=== PATIENT | male | born 1965 | race Caucasian/White ===

== ENCOUNTER 2021-11-02 16:25 | Inpatient (IN) | payer OTHER ==
[~2021-11-02] VITALS: Ht 168 cm; Wt 76.0 kg
[2021-11-02] MEDS ORDERED: NITROGLYCERIN 0.4 MG SL TABS BTL 25'S SL ONE (16:35)
[2021-11-02] MEDS ORDERED: ASPIRIN 81 MG CHEW (CHILDREN'S ASA) ONE (16:35)
--- NOTE | 2021-11-02 16:45 | ED Chest Pain ---
General Chief Complaint: Chest Pain Stated Complaint: CHEST PAIN Source: patient Exam Limitations: no limitations History of Present Illness Date Seen by Provider: Nov 02, 2021 Time Seen by Provider: 16:33 Initial Comments Patient is an 56-year-old male who presents to the emergency department today with a chief complaint of substernal chest pain onset approximately 30 minutes prior to arrival. Patient states he was walking into his barn at the onset of symptoms. He states it traveled up into his anterior neck. He feels a little nauseous, has not vomited. He feels a little short of breath. He tells me he has No prior history of coronary artery disease but he has had a mechanical aortic valve replacement and is anticoagulated on Coumadin. He denies recent illnesses such as fevers, chills, productive cough. On patient arrival into the room and EKG immediately after bed placement it is noted that the patient is having an acute myocardial infarction. I immediately sent the EKG to Dr. Hughes and we activated the Generator Assembler. 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 NTG SL PAPER PRODUCTION ENGINEER: No Allergies and Home Medications Allergies Coded Allergies: Txipamr-NQN-[id number] Reductase Inhibitor (Verified Allergy, Unknown, 11/02/21) amoxicillin (Verified Allergy, Unknown, Diarrhea, 11/02/21) clavulanic acid (Verified Allergy, Unknown, Diarrhea, 11/02/21) Patient Home Medication List Home Medication List Reviewed: Yes Aspirin (Aspirin EC) 81 Mg Tablet., 81 MG PO DAILY, (Reported) Entered as Reported by: JONI SYED on 11/03/21 1031 Last Action: Reviewed Cholecalciferol (Vitamin D3) (Vitamin D3) 125 Mcg (5000 Unit) Tablet, 125 MCG PO DAILY, (Reported) Entered as Reported by: JONI SYED on 11/03/21 1031 Last Action: Reviewed Insulin Lispro (Humalog) 100 Unit/Ml Vial, 0 SC UD, (Reported) Entered as Reported by: JONI SYED on 11/03/21 1030 Last Action: Reviewed Magnesium Oxide (Magnesium) 400 Mg Magnesium Tablet, 800 MG PO BID, (Reported) Entered as Reported by: JONI SYED on 11/03/21 1033 Last Action: Reviewed Multivitamin (Multi-Vitamin Daily) 1 Each Tablet, 1 EACH PO HS, (Reported) Entered as Reported by: JONI SYED on 11/03/21 103 Last Action: Reviewed Niacinamide (Niacin) 500 Mg Tablet, 500 MG PO HS, (Reported) Entered as Reported by: JONI SYED on 11/03/211031 Last Action: Reviewed Potassium Chloride (Potassium Chloride) 20 Meq Tab.er.prt, 20 MG PO DAILY, (Reported) Entered as Reported by: JONI SYED on 11/03/211029 Last Action: Reviewed Valsartan (Valsartan) 320 Mg Tablet, 320 MG PO DAILY, (Reported) Entered as Reported by: JONI SYED on 11/03/21 103 Last Action: Reviewed Warfarin Sodium (Warfarin Sodium) 2.5 Mg Tablet, 2.5 MG PO HS, (Reported) Entered as Reported by: JONI SYED on 11/03/211029 Last Action: Reviewed Review of Systems Review of Systems Constitutional: see HPI EENTM: No Symptoms Reported Respiratory: SOA With Exertion Cardiovascular: Chest Pain Gastrointestinal: Nausea Genitourinary: No Symptoms Reported Musculoskeletal: no symptoms reported Skin: no symptoms reported Psychiatric/Neurological: No Symptoms Reported All Other Systems Reviewed Negative Unless Noted: Yes Physical Exam Vital Signs Vital Signs - First Documented 11/02/21 11/02/21 16:26 16:50 Temp 36.4 Pulse 116 Resp 20 B/P (MAP) 171/80 (110) Pulse Ox 100 O2 Delivery Nasal Cannula O2 Flow Rate 2.00 Capillary Refill : Height, Weight, BMI Height: '" Weight: lbs. oz. kg; BMI Method: General Appearance: WD/WN, Anxious, Moderate Distress HEENT: PERRL/EOMI Neck: Normal Inspection Respiratory: Chest Non Tender, Lungs Clear, Normal Breath Sounds, No Accessory Muscle Use, No Respiratory Distress Cardiovascular: Regular Rate, Rhythm, Normal Peripheral Pulses, Tachycardia (110) Gastrointestinal: Non Tender, Soft Extremity: Normal Inspection, Normal Range of Motion Neurologic/Psychiatric: Alert, Oriented x3, No Motor/Sensory Deficits, Normal Mood/Affect, air press operator II-XII Norm as Tested Skin: Warm/Dry, Pallor Progress/Results/Core Measures Results/Orders Lab Results Laboratory Tests Test 11/02/21 16:31 11/02/21 16:48 Range/Units White Blood Count 9.6 4.3-11.0 10^3/uL Red Blood Count 5.14 4.30-5.52 10^6/uL Hemoglobin 16.0 13.3-17.7 g/dL Hematocrit 45 40-54 % Mean Corpuscular Volume 87 80-99 fL Mean Corpuscular Hemoglobin 31 25-34 pg Mean Corpuscular Hemoglobin Concent 36 32-36 g/dL Red Cell Distribution Width 13.3 10.0-14.5 % Platelet Count 198 130-400 10^3/uL Mean Platelet Volume 11.0 9.0-12.2 fL Immature Granulocyte % (Auto) 3 % Neutrophils (%) (Auto) 54 42-75 % Lymphocytes (%) (Auto) 32 12-44 % Monocytes (%) (Auto) 10 0-12 % Eosinophils (%) (Auto) 1 0-10 % Basophils (%) (Auto) 0 0-10 % Neutrophils # (Auto) 5.2 1.8-7.8 10^3/uL Lymphocytes # (Auto) 3.1 1.0-4.0 10^3/uL Monocytes # (Auto) 0.9 0.0-1.0 10^3/uL Eosinophils # (Auto) 0.1 0.0-0.3 10^3/uL Basophils # (Auto) 0.0 0.0-0.1 10^3/uL Immature Granulocyte # (Auto) 0.2 H 0.0-0.1 10^3/uL Prothrombin Time 19.9 H 12.2-14.7 SEC INR Comment 1.6 H 0.8-1.4 Activated Partial Thromboplast Time 34 24-35 SEC Sodium Level 139 135-145 MMOL/L Potassium Level 3.6 3.6-5.0 MMOL/L Chloride Level 101 98-107 MMOL/L Carbon Dioxide Level 23 21-32 MMOL/L Anion Gap 15 H 5-14 MMOL/L Blood Urea Nitrogen 27 H 7-18 MG/DL Creatinine 1.35 H 0.60-1.30 MG/DL Estimat Glomerular Filtration Rate 61 BUN/Creatinine Ratio 20 Glucose Level 129 H 70-105 MG/DL Calcium Level 9.4 8.5-10.1 MG/DL Corrected Calcium 9.2 8.5-10.1 MG/DL Magnesium Level 1.5 L 1.6-2.4 MG/DL Total Bilirubin 0.7 0.1-1.0 MG/DL Aspartate Amino Transf (AST/SGOT) 37 H 5-34 U/L Alanine Aminotransferase (ALT/SGPT) 52 0-55 U/L Alkaline Phosphatase 89 40-136 U/L Myoglobin 190.0 H 10.0-92.0 NG/ML Troponin I < 0.028 <0.028 NG/ML Total Protein 7.3 6.4-8.2 GM/DL Albumin 4.3 3.2-4.5 GM/DL Glucometer 162 H 70-110 MG/DL My Orders Orders - AMMON BROWN MD Ekg Tracing (11/02/21 16:29) Cbc With Automated Diff (11/02/21 16:38) Magnesium (11/02/21 16:38) Chest 1 View, Ap/Pa Only (11/02/21 16:38) Ekg Tracing (11/02/21 16:38) Comprehensive Metabolic Panel (11/02/21 16:38) Myoglobin Serum (11/02/21 16:38) Protime With Inr (11/02/21 16:38) Partial Thromboplastin Time (11/02/21 16:38) O2 (11/02/21 16:38) Monitor-Rhythm Ecg Trace Only (11/02/21 16:38) Ed Iv/Invasive Line Start (11/02/21 16:38) Troponin I [place] (11/02/21 16:38) Aspirin Chewable Tablet (Baby Aspirin Ch (11/02/21 16:35) Nitroglycerin 0.4 Mg Btl 25's (Nitrostat (11/02/21 16:35) Vital Signs/I&O 11/02/21 11/02/21 16:26 16:50 Temp 36.4 Pulse 116 Resp 20 B/P (MAP) 171/80 (110) Pulse Ox 100 O2 Delivery Nasal Cannula O2 Flow Rate 2.00 Initial ECG Impression Date: Nov 03, 2021 Initial ECG Impression Time: 16:32 Initial ECG Rate: 102 Initial ECG Rhythm: S.Tach Initial ECG Intervals VA 154 QRS 143 [address] elevation. peaked T waves with widened QRS leads V2-V6; concerning for STEMI Diagnostic Imaging Diagonstic Imaging: Xray Plain Films/CT/US/NM/MRI: chest Comments [facility] [place], [place] NAME: [place] [facility] REC#: [id number] PT STATUS: REG SDC : 1965 PHYSICIAN: AMMON BROWN MD ADMIT DATE: 11/02/21/[facility] Signed Date of Exam:11/02/21 CHEST 1 VIEW, AP/PA ONLY EXAMINATION: Chest 1 view HISTORY: Chest pain COMPARISON: None available. FINDINGS: The lungs are clear without edema or pneumonia. No pleural effusion or pneumothorax. Heart size is normal. Median sternotomy wires are aligned. IMPRESSION: 1. Clear lungs. 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
[2021-11-02 16:48] LABS: BASOPHILS % (AUTO) 0 % (0-10); EOSINOPHILS # (AUTO) 0.1 10^3/uL (0.0-0.3); EOSINOPHILS % (AUTO) 1 % (0-10); HEMATOCRIT 45 % (40-54); LYMPHOCYTES # (AUTO) 3.1 10^3/uL (1.0-4.0); LYMPHOCYTES % (AUTO) 32 % (12-44); MEAN CORPUSCULAR HEMOGLOBIN 31 pg (25-34); MEAN CORPUSCULAR HGB CONC 36 g/dL (32-36); MEAN CORPUSCULAR VOLUME 87 fL (80-99); MONOCYTES # (AUTO) 0.9 10^3/uL (0.0-1.0); MONOCYTES % (AUTO) 10 % (0-12); NEUTROPHILS # (AUTO) 5.2 10^3/uL (1.8-7.8); NEUTROPHILS % (AUTO) 54 % (42-75); PLATELET COUNT 198 10^3/uL (130-400); WHITE BLOOD COUNT 9.6 10^3/uL (4.3-11.0)
[2021-11-02] MEDS ORDERED: morphine INJ 10 MG/ML 1ML (SYR OR VIAL) IVP STA ×2 (16:54→22:29)
--- NOTE | 2021-11-02 16:56 | Diagnostic Imaging Report ---
EXAMINATION: Chest 1 view HISTORY: Chest pain COMPARISON: None available. FINDINGS: The lungs are clear without edema or pneumonia. No pleural effusion or pneumothorax. Heart size is normal. Median sternotomy wires are aligned. IMPRESSION: 1. Clear lungs. Dictated by: Dictated on workstation # [id number]
[2021-11-02 16:57] LABS: ALBUMIN 4.3 GM/DL (3.2-4.5); POTASSIUM 3.6 MMOL/L (3.6-5.0)
[2021-11-02 16:58] LABS: CALCIUM 9.4 MG/DL (8.5-10.1)
[2021-11-02] MEDS ORDERED: MIDAZOLAM 5 MG/5 ML (VERSED) VIAL ONE (16:59)
[2021-11-02] MEDS ORDERED: NS IV 1000 ML 1,000 ML ONE (16:59)
[2021-11-02] MEDS ORDERED: NITRO DRIP 25000 MCG/D5W 250 ML IV ONE ×2 (16:59→19:00)
[2021-11-02] MEDS ORDERED: HEParin (CATH LAB) 1,000 ML IV ONE (16:59)
[2021-11-02] MEDS ORDERED: HEParin 1000 UNIT/ML (10ML VIAL) FOR BOLUS ONE (16:59)
[2021-11-02] MEDS ORDERED: fentaNYL INJ 100 MCG/2 ML AMP ONE (16:59)
[2021-11-02 17:00] LABS: TOTAL PROTEIN 7.3 GM/DL (6.4-8.2)
[2021-11-02] MEDS ORDERED: LIDOCAINE 1% INJ 20 ML VIAL ONE (17:00)
--- NOTE | 2021-11-02 17:01 | Cardiology History & Physical ---
HPI-Cardiology Cardiology Consultation Date of Consultation 11/02/21 Date of Admission Time Seen by Provider: 16:58 Indication: Acute myocardial infarction HPI 56 years old gentleman with history of aortic valve replacement, started to have sudden onset chest pain retrosternal radiating to the neck and jaw. Came into the emergency room and noted to have ST elevation in the anterolateral leads. He still having active pain, some relieved with nitroglycerin but still having persistent pain. No shortness of breath. No palpitation, patient is fairly anxious. PMH-Cardiology Other PMHx Discussed below Social History Patient Social History Marrital Status: Employed/Student: employed Smoking: Never smoker Alcohol Use?: Yes Family Hx Other Noncontributory ROS-Cardiology Review of Systems General: No Chills, No Night Sweats, No Fatigue, No Malaise, No Appetite HEENT: No Head Aches, No Visual Changes, No Eye Pain, No Ear Pain, No Dysphasia, No Sinus Congestion, No Post Nasal Drip, No Sore Throat Pulmonary: No Dyspnea, No Cough, No Pleuritic Chest Pain Cardiovascular: Chest Pain; No: Palpitations, Orthopnea, Paroxysmal Noc. Dyspnea, Edema, Lt Headedness Gastrointestinal: No: Nausea, Vomiting, Abdominal Pain, Diarrhea, Constipation, Melena, Hematochezia Genitourinary: No Dysuria, No Frequency, No Incontinence, No Hematuria, No Retention Musculoskeletal: No: neck pain, shoulder pain, arm pain, back pain, hand pain, leg pain, foot pain Neurological: No: Weakness, Numbness, Incoordination, Change in speech, Confusion, Seizures Home Medications & Allergies Allergies: Coded Allergies: [id number]-XMN-FoS Reductase Inhibitor (Verified Allergy, Unknown, 11/02/21) amoxicillin (Verified Allergy, Unknown, Diarrhea, 11/02/21) clavulanic acid (Verified Allergy, Unknown, Diarrhea, 11/02/21) Home Medication List Reviewed: Yes Exam-Cardiology Exam General Appearance: Alert, Oriented X3, Cooperative, No Acute Distress HEENT: Atraumatic, PERRLA Respiratory: Clear to Auscultation, Normal Air Movement Cardiovascular: Regular Rate, Normal S1, Normal S2, No Murmurs, Other (Metallic click) Abdominal: Normal Bowel Sounds, Soft, No Tenderness, No Hepatosplenomegaly, No Masses Extremities: No Clubbing, No Cyanosis, No Edema, Normal Pulses, No Tenderness/Swelling Skin: No Rashes, No Breakdown, No Significant Lesion Neuro: Normal Gait, Normal Speech, Strength at 5/5 X4 Ext, Normal Tone, Sensation Intact Psych/Mental Status: Mental Status NL, Mood NL Results Labs Labs Laboratory Tests 11/02/21 16:31: White Blood Count 9.6, Red Blood Count 5.14, Hemoglobin 16.0, Hematocrit 45, Mean Corpuscular Volume 87, Mean Corpuscular Hemoglobin 31, Mean Corpuscular Hemoglobin Concent 36, Red Cell Distribution Width 13.3, Platelet Count 198, Mean Platelet Volume 11.0, Immature Granulocyte % (Auto) 3, Neutrophils (%) (Auto) 54, Lymphocytes (%) (Auto) 32, Monocytes (%) (Auto) 10, Eosinophils (%) (Auto) 1, Basophils (%) (Auto) 0, Neutrophils # (Auto) 5.2, Lymphocytes # (Auto) 3.1, Monocytes # (Auto) 0.9, Eosinophils # (Auto) 0.1, Basophils # (Auto) 0.0, Immature Granulocyte # (Auto) 0.2H, Sodium Level 139, Potassium Level 3.6, Chloride Level 101, Albumin 4.3 11/02/21 16:48: Glucometer 162H A/P-Cardiology Admission Diagnosis Acute ST elevation myocardial infarction Coronary artery disease Aortic valve replacement Hypertension Admission Status: Inpatient Order (span 2 midnights) Reason for Inpatient Admission: Acute myocardial infarction Assessment/Plan Acute ST elevation myocardial infarction in the anterolateral leads. Patient is maintained on Coumadin. Plan to proceed with emergency cardiac catheterization with stenting as needed Coronary artery disease, reporting cardiac catheterization prior to his valve surgery in 2018 did not require any stenting Planning to proceed with emergency cardiac catheterization Aortic valve replacement done in 2018, metallic valve, maintained on Coumadin, reporting INR is well controlled. Will monitor INR. 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
[2021-11-02 17:02] LABS: BILIRUBIN,TOTAL 0.7 MG/DL (0.1-1.0)
--- NOTE | 2021-11-02 17:02 | Conscious Sedation/ASA ---
Conscious Sedation Pre-Proced Time 17:02 ASA Score 3 For ASA 3 and 4: Consider anesthesia and medical clearance. Also, for patients with a history of failed moderate sedation consider anesthesia. Airway Lungs Heart ASA score ASA 1: a normal healthy patient ASA 2: a patient with a mild systemic disease (mid diabetes, controlled hypertension, obesity x ASA 3: a patient with a severe systemic disease that limits activity (angina, COPD, prior Myocardial infarction) ASA 4: a patient with an incapacitating disease that is a constant threat to life (CHF, renal failure) ASA 5: a moribund patient not expected to survive 24 hrs. (ruptured aneurysm) ASA 6: a declared brain- patient whose organs are being harvested. For emergent operations, add the letter E after the classification Mallampati Classification Grade 3 Sedation Plan Analgesia, Amnesia, Plan communicated to team members, Discussed options with patient/fam, Discussed risks with patient/fam The patient is an appropriate candidate to undergo the planned procedure, sedation, and anesthesia. The patient immediately re-assessed prior to indication. JOMAR VELOZ MD Nov 02, 2021 17:02
[2021-11-02 17:03] LABS: CREATININE SERUM 1.35 MG/DL (0.60-1.30)
[2021-11-02 17:06] LABS: MAGNESIUM 1.5 MG/DL (1.6-2.4)
[2021-11-02 17:21] LABS: INR 1.6 (0.8-1.4); PROTHROMBIN TIME PATIENT 19.9 SEC (12.2-14.7)
[2021-11-02] MEDS ORDERED: ATROPINE INJECTION 1 MG/10 ML SYR (ABBOTT) ONE (17:37)
[2021-11-02] MEDS ORDERED: CLOPIDOGREL 300 MG (PLAVIX) TABLET PO ONE (17:45)
[2021-11-02] MEDS ORDERED: ASPIRIN 325 MG (5 GR) TABLET ONE (17:45)
--- NOTE | 2021-11-02 17:57 | Cardiac Cath Report ---
Cardiac Cath Report Physician (s)/Skiver Machine Operator (s) Physician JOMAR VELOZ MD Pre-Procedure Diagnosis Pre-Procedure Diagnosis: Acute ST elevation myocardial infarction in the anter ior lateral leads Post-Procedure Note Procedure Start Date: Nov 02, 2021 Name of Procedure: Coronary angiogram Thrombectomy of the LAD Stenting of the LAD Fluoroscopy of a prosthetic aortic valve Findings/Procedure Note PROCEDURE NOTE: 56 years old gentleman with aortic valve replacement, hypertension, hyperlipidemia, diabetes mellitus, admitted with acute ST elevation myocardial infarction in the anterior wall. After explaining the procedure to the patient, all pros and cons were explained, all questions were answered. The patient signed the consent and then he was placed on the cardiac catheterization laboratory. Groin was prepped SL fashion local anesthesia was used. Sheath placed in the right femoral artery. Robert right and left catheter were used to access the coronary system. Patient had total occlusion of the mid LAD, given additional 5000 units of heparin. Robert left guide was advanced and BMW wire was advanced and parked distally. I proceeded with the use of an export catheter and did thrombectomy. Angiogram showed improvement of the flow. Has severe stenosis at the mid LAD. I proceeded with stenting using velia point stent 2.75 x 15 mm expanded under 16 mayank. Post intervention patient reported resolution of his chest pain. Has EKG improvement. ANSLEY-3 flow. Door to thrombectomy was 61 minutes At the end of the procedure the sheath was removed. Closure device was deployed FINDINGS: Hemodynamics LV was not measured Aorta 99/71 mean of 79 ANATOMY: Left Main is free of obstructive disease Left Anterior Descending has total occlusion of the midportion successful thrombectomy then deployment of velia point stent 2.75 x 15 mm expanded to 2.9 mm. Left Circumflex is large dominant artery with mild disease Right Coronary Artery is tortuous artery with mild disease LV Gram was not done Fluoroscopy of the prosthetic valves showed bicuspid aortic valve metallic functioning normally CONCLUSION: 1. Acute ST elevation myocardial infarction with emergency thrombectomy and stenting of the LAD door to thrombectomy was 61 minutes 2. Successful deployment of velia point stent 2.75 x 15 mm to the mid LAD with excellent results 3. Dominant circumflex artery with mild to moderate disease in the circumflex artery and right coronary artery 4. Fluoroscopy of the prosthetic aortic valve showed the valve functioning normally DISCUSSION AND RECOMMENDATION: Patient was loaded with aspirin and Plavix will monitor INR closely, started on Toprol, Lipitor and restarting Coumadin in addition to Protonix. Tight diabetic control Anesthesia Type: Conscious Sedation Estimated blood loss (mL): 30 ml Contrast Amount: 130 ml Total Radiation Dose: 1136 mGy Post-Procedure Diagnosis Post-operative diagnosis: Acute ST elevation myocardial infarction Coronary artery disease Aortic valve replacement Hypertension Hyperlipidemia Diabetes mellitus JOMAR VELOZ MD Nov 02, 2021 17:57
[2021-11-02] MEDS ORDERED: PATIENT MAY USE OWN MEDS, ALL PO SCH (18:00)
--- NOTE | 2021-11-02 19:00 | Tele-ICU Consult ---
History of Present Illness History of Present Illness Date Seen by Provider: Nov 02, 2021 Time Seen by Provider: 18:59 Date of Admission Available chart/ vitals / labs / Images reviewed H&P is from ER notes Patient's information available about PMH, Shx, Fhx allergy reviewed in EMR. ROS as per chart Now in ICU, hemodynamically stable Video assessment done using teleICU camera, A/P STEMI- s/p stenting of the LAD 11/02 - stable post cath - as per cards Aortic valve replacement done in 2018, metallic valve -on Coumadin, folow INR DM II - ISS Plans in collaboration with bedside consultants and IM MDs. Discussed with RN to reach out if any questions or concerns A total of 15 minutes of critical care time was devoted to this patient today, required to treat and/or prevent further deterioration of critical care condition ( as above ) . Reason for Visit: Acute myocardial infarction Allergies and Home Medications Allergies Coded Allergies: [id number]-[id number] Reductase Inhibitor (Verified Allergy, Unknown, 11/02/21) amoxicillin (Verified Allergy, Unknown, Diarrhea, 11/02/21) clavulanic acid (Verified Allergy, Unknown, Diarrhea, 11/02/21) Past Medical/Social/Family Hx Patient Social History Marrital Status: Employed/Student: employed Tobacco Use?: No Substance use?: No Alcohol Use?: Yes Alcohol type: Beer Alcohol Frequency: Once in a while Pt stated abuse/neglect: No Immunizations Up To Date Influenza Vaccine Up-to-Date: No; Not Current Tetanus Booster (TDap): Unknown Current Status Communicates: Verbally Primary Language: Setswana Preferred Spoken Language: Setswana Implanted or Applied Medical D: Orthopedic hardware Review of Systems Constitutional: see HPI Focused Exam Height, Weight, BMI Height: '" Weight: lbs. oz. kg; 26.00 BMI Method: Exam Exam Patient acknowledged, consented, and participated in this virtual visit which was conducted using real time audio/video Vital Signs Date Time Temp Pulse Resp B/P (MAP) Pulse Ox O2 Delivery O2 Flow Rate FiO2 11/02/21 18:51 84 11/02/21 18:45 77 11 100 Room Air 11/02/21 18:30 37.1 83 7 119/80 98 Room Air 11/02/21 18:15 87 19 121/94 96 11/02/21 18:11 88 11/02/21 17:11 36.4 94 20 106/80 100 Nasal Cannula 2.00 2.00 11/02/21 16:50 100 Nasal Cannula 2.00 11/02/21 16:26 36.4 116 20 171/80 (110) Height & Weight Height: '" Weight: lbs. oz. kg; 26.00 BMI Method: General Appearance: No Apparent Distress Results Lab Laboratory Tests 11/02/21 16:31 Assessment/Plan Assessment/Plan 1 FABIÁN HARRIS MD Nov 02, 2021 19:00
[2021-11-02] MEDS: NS IV 1000 ML 1,000 ML IV SCH (19:04)
[2021-11-02] MEDS: NITRO DRIP 25000 MCG/D5W 250 ML IV SCH (19:05)
[2021-11-02 19:12] VITALS: BP 118/73
[2021-11-02] MEDS ORDERED: ACETAMINOPHEN 500 MG TAB (TYLENOL) ONE (21:30)
[2021-11-02] MEDS: ACETAMINOPHEN 500 MG TAB (TYLENOL) PO PRN (21:32)
[2021-11-02] MEDS ORDERED: morphine INJ 4 MG/ML 1 ML (VIAL/SYRINGE) IVP ONE (22:45)
[2021-11-02] MEDS ORDERED: morphine INJ 4 MG/ML 1 ML (VIAL/SYRINGE) ONE (22:45)
[2021-11-03] MEDS: morphine INJ 10 MG/ML 1ML (SYR OR VIAL) IVP PRN ×4 (00:52→08:59)
[2021-11-03] MEDS ORDERED: PANTOPRAZOLE 40 MG (PROTONIX) VIAL IV ONE (04:15)
[2021-11-03] MEDS: NS IV 1000 ML 1,000 ML IV SCH ×4 (05:01→17:30)
[2021-11-03 05:22] LABS: HEMATOCRIT 40 % (40-54); MEAN CORPUSCULAR HEMOGLOBIN 30 pg (25-34); MEAN CORPUSCULAR HGB CONC 35 g/dL (32-36); MEAN CORPUSCULAR VOLUME 87 fL (80-99); PLATELET COUNT 151 10^3/uL (130-400); WHITE BLOOD COUNT 8.7 10^3/uL (4.3-11.0)
[2021-11-03 05:31] LABS: POTASSIUM 3.6 MMOL/L (3.6-5.0)
[2021-11-03 05:33] LABS: CALCIUM 8.2 MG/DL (8.5-10.1)
[2021-11-03 05:37] LABS: CREATININE SERUM 1.19 MG/DL (0.60-1.30)
[2021-11-03 05:46] LABS: INR 1.7 (0.8-1.4); PROTHROMBIN TIME PATIENT 20.3 SEC (12.2-14.7)
[2021-11-03 05:59] LABS: ERYTHROCYTE SEDIMENTATION RATE 9 MM/HR (0-30)
[2021-11-03] MEDS ORDERED: MIDAZOLAM 5 MG/5 ML (VERSED) VIAL ONE (06:29)
[2021-11-03] MEDS ORDERED: fentaNYL INJ 100 MCG/2 ML AMP ONE (06:29)
[2021-11-03] MEDS ORDERED: HEParin (CATH LAB) 2,000 ML IV ONE (06:29)
[2021-11-03] MEDS ORDERED: LIDOCAINE 1% INJ 20 ML VIAL ONE (06:29)
[2021-11-03] MEDS ORDERED: HEParin 1000 UNIT/ML (10ML VIAL) FOR BOLUS ONE (06:29)
--- NOTE | 2021-11-03 06:29 | Cardiology Progress Note ---
Subjective Date Seen by Provider: Nov 03, 2021 Time Seen by Provider: 06:26 Subjective/Events-last exam Patient continued to have severe chest pain overnight. Nitroglycerin helped somewhat but continued to have persistent pain. Morphine helped slightly better than nitroglycerin but continued to have persistent pain On my evaluation he was uncomfortable, having pressure all over his upper chest. Review of Systems General: No Chills, No Night Sweats, No Fatigue, No Malaise, No Appetite, No Other HEENT: No Head Aches, No Visual Changes, No Eye Pain, No Ear Pain, No Dysphasia, No Sinus Congestion, No Post Nasal Drip, No Sore Throat, No Other Pulmonary: No Dyspnea, No Cough, No Pleuritic Chest Pain, No Other Cardiovascular: Chest Pain; No: Palpitations, Orthopnea, Paroxysmal Noc. Dyspnea, Edema, Lt Headedness, Other Objective-Cardiology Exam Last Set of Vital Signs Vital Signs 11/02/21 11/02/21 11/03/21 17:11 18:30 05:00 Temp 37.1 Pulse 75 Resp 11 B/P (MAP) 102/77 Pulse Ox 97 O2 Delivery Room Air O2 Flow Rate 2.00 2.00 I&O Intake and Output 11/03/21 00:00 Intake Total 300 ml Output Total 450 ml Balance -150 ml Intake Oral 300 ml Output Urine Total 450 ml Daily Weight Change No General: Alert, Oriented X3, Cooperative, No Acute Distress HEENT: Atraumatic, PERRLA Neck: Supple, No JVD Lungs: Clear to Auscultation, Normal Air Movement Heart: Regular Rate, Normal S1, Normal S2, No Murmurs, Other (Metallic click) Abdomen: Normal Bowel Sounds, Soft, No Tenderness, No Hepatosplenomegaly, No Masses Extremities: No Clubbing, No Cyanosis, No Edema, Normal Pulses, No Tenderness/Swelling Skin: No Rashes, No Breakdown, No Significant Lesion Neuro: Normal Gait, Normal Speech, Strength at 5/5 X4 Ext, Normal Tone, Sensation Intact Psych/Mental Status: Mental Status NL, Mood NL Results Lab Laboratory Tests 11/02/21 16:31 11/03/21 04:40 Laboratory Tests Test 11/02/21 16:31 11/02/21 16:48 11/02/21 20:48 11/03/21 00:54 Range/Units White Blood Count 9.6 4.3-11.0 10^3/uL Red Blood Count 5.14 4.30-5.52 10^6/uL Hemoglobin 16.0 13.3-17.7 g/dL Hematocrit 45 40-54 % Mean Corpuscular Volume 87 80-99 fL Mean Corpuscular Hemoglobin 31 25-34 pg Mean Corpuscular Hemoglobin Concent 36 32-36 g/dL Red Cell Distribution Width 13.3 10.0-14.5 % Platelet Count 198 130-400 10^3/uL Mean Platelet Volume 11.0 9.0-12.2 fL Immature Granulocyte % (Auto) 3 % Neutrophils (%) (Auto) 54 42-75 % Lymphocytes (%) (Auto) 32 12-44 % Monocytes (%) (Auto) 10 0-12 % Eosinophils (%) (Auto) 1 0-10 % Basophils (%) (Auto) 0 0-10 % Neutrophils # (Auto) 5.2 1.8-7.8 10^3/uL Lymphocytes # (Auto) 3.1 1.0-4.0 10^3/uL Monocytes # (Auto) 0.9 0.0-1.0 10^3/uL Eosinophils # (Auto) 0.1 0.0-0.3 10^3/uL Basophils # (Auto) 0.0 0.0-0.1 10^3/uL Immature Granulocyte # (Auto) 0.2 H 0.0-0.1 10^3/uL Prothrombin Time 19.9 H 12.2-14.7 SEC INR Comment 1.6 H 0.8-1.4 Activated Partial Thromboplast Time 34 24-35 SEC Sodium Level 139 135-145 MMOL/L Potassium Level 3.6 3.6-5.0 MMOL/L Chloride Level 101 98-107 MMOL/L Carbon Dioxide Level 23 21-32 MMOL/L Anion Gap 15 H 5-14 MMOL/L Blood Urea Nitrogen 27 H 7-18 MG/DL Creatinine 1.35 H 0.60-1.30 MG/DL Estimat Glomerular Filtration Rate 61 BUN/Creatinine Ratio 20 Glucose Level 129 H 70-105 MG/DL Calcium Level 9.4 8.5-10.1 MG/DL Corrected Calcium 9.2 8.5-10.1 MG/DL Magnesium Level 1.5 L 1.6-2.4 MG/DL Total Bilirubin 0.7 0.1-1.0 MG/DL Aspartate Amino Transf (AST/SGOT) 37 H 5-34 U/L Alanine Aminotransferase (ALT/SGPT) 52 0-55 U/L Alkaline Phosphatase 89 40-136 U/L Myoglobin 190.0 H 10.0-92.0 NG/ML Troponin I < 0.028 <0.028 NG/ML Total Protein 7.3 6.4-8.2 GM/DL Albumin 4.3 3.2-4.5 GM/DL Glucometer 162 H 146 H 188 H 70-110 MG/DL Test 11/03/21 04:40 Range/Units White Blood Count 8.7 4.3-11.0 10^3/uL Red Blood Count 4.60 4.30-5.52 10^6/uL Hemoglobin 14.0 13.3-17.7 g/dL Hematocrit 40 40-54 % Mean Corpuscular Volume 87 80-99 fL Mean Corpuscular Hemoglobin 30 25-34 pg Mean Corpuscular Hemoglobin Concent 35 32-36 g/dL Red Cell Distribution Width 13.5 10.0-14.5 % Platelet Count 151 130-400 10^3/uL Mean Platelet Volume 11.0 9.0-12.2 fL Erythrocyte Sedimentation Rate 9 0-30 MM/HR Prothrombin Time 20.3 H 12.2-14.7 SEC INR Comment 1.7 H 0.8-1.4 Sodium Level 136 135-145 MMOL/L Potassium Level 3.6 3.6-5.0 MMOL/L Chloride Level 102 98-107 MMOL/L Carbon Dioxide Level 20 L 21-32 MMOL/L Anion Gap 14 5-14 MMOL/L Blood Urea Nitrogen 22 H 7-18 MG/DL Creatinine 1.19 0.60-1.30 MG/DL Estimat Glomerular Filtration Rate 71 BUN/Creatinine Ratio 18 Glucose Level 206 H 70-105 MG/DL Calcium Level 8.2 L 8.5-10.1 MG/DL Troponin I <0.028 NG/ML Triglycerides Level 94 <150 MG/DL Cholesterol Level 180 < 200 MG/DL LDL Cholesterol Direct 135 H 1-129 MG/DL VLDL Cholesterol 19 5-40 MG/DL HDL Cholesterol 32 L 40-60 MG/DL A/P-Cardiology Admission Diagnosis Acute ST elevation myocardial infarction Coronary artery disease Aortic valve replacement Hypertension Assessment/Plan Acute chest pain. Continue to have recurrent episodes of chest pain. Has Q waves in the anterior leads with slight ST elevation Slight response to nitroglycerin and morphine but persistent pain. ESR is normal, troponin level is elevated due to washout. I will proceed with repeat coronary angiogram and reevaluate his coronary anatomy. Acute ST elevation myocardial infarction in the anterolateral leads on November 02, 2021. Emergency cardiac catheterization and thrombectomy and stenting of the LAD. Coronary artery disease, reporting cardiac catheterization prior to his valve surgery in 2018 did not require any stenting Cardiac catheterization was carried out on November 02, 2021 showed occluded LAD with a thrombus in the mid LAD. Successful thrombectomy with door to thrombectomy time 61 minutes Emergency stenting of the LAD with deployment of 2.75 x 15 mm velia point stent with excellent results and establishment of excellent flow. Patient was feeling better after the cardiac catheterization then he started to have chest pain again. I will reevaluate coronary angiogram Aortic valve replacement done in 2018, metallic valve, maintained on Coumadin, reporting INR is well controlled. Will monitor INR. Evaluate 2D echo Hypertension, controlled, monitor blood pressure Hyperlipidemia, I started Lipitor 80 mg daily History of chronic renal insufficiency. 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
[2021-11-03] MEDS ORDERED: NS IV 1000 ML 1,000 ML ONE (06:30)
[2021-11-03] MEDS ORDERED: NITRO DRIP 25000 MCG/D5W 0 ML IV ONE (06:30)
--- NOTE | 2021-11-03 06:31 | Conscious Sedation/ASA ---
Conscious Sedation Pre-Proced Time 06:30 ASA Score 3 For ASA 3 and 4: Consider anesthesia and medical clearance. Also, for patients with a history of failed moderate sedation consider anesthesia. Airway Lungs Heart ASA score ASA 1: a normal healthy patient ASA 2: a patient with a mild systemic disease (mid diabetes, controlled hypertension, obesity x ASA 3: a patient with a severe systemic disease that limits activity (angina, COPD, prior Myocardial infarction) ASA 4: a patient with an incapacitating disease that is a constant threat to life (CHF, renal failure) ASA 5: a moribund patient not expected to survive 24 hrs. (ruptured aneurysm) ASA 6: a declared brain- patient whose organs are being harvested. For emergent operations, add the letter E after the classification Mallampati Classification Grade 3 Sedation Plan Analgesia, Amnesia, Plan communicated to team members, Discussed options with patient/fam, Discussed risks with patient/fam The patient is an appropriate candidate to undergo the planned procedure, sedation, and anesthesia. The patient immediately re-assessed prior to indication. JOMAR VELOZ MD Nov 03, 2021 06:31
[2021-11-03] MEDS ORDERED: PATIENT MAY USE OWN MEDS, ALL PO SCH (07:30)
--- NOTE | 2021-11-03 08:32 | Consultation - Hospitalist ---
HPI History of Present Illness: HPI/Chief Complaint Patient is a 56-year-old male with past medical history of insulin- dependent diabetes type 1, hypertension, hyperlipidemia, bicuspid valve status post aortic valve replacement who presented to the emergency department due to sudden onset of chest pain. He states it radiated to his neck and his jaw. On presentation to the emergency room he was found to have a STEMI on EKG and was brought emergently to the [facility]. He underwent thrombectomy PCI to the LAD. He was admitted to the ICU and continued to have chest pain despite morphine and a nitro glycerin drip. This morning he returned to the [facility] but no intervention was warranted. On my exam he reports feeling okay and states he has been checking his blood sugars and dosing on his insulin drip per his usual carb counting adjustment. He did lower his basal rate as he has been n.p.o. He has no other complaints at this time. Source: patient Date Seen 11/03/21 Attending Physician PCP Admitting Physician: Milton Hughes MD Attending Physician: Milton Hughes MD Referring Physician Date of Admission Nov 02, 2021 at 18:51 Home Medications & Allergies Home Medications Reviewed patient Home Medication Reconciliation performed by pharmacy medication reconciliations environmental engineering technician and/or nursing. Patients Allergies have been reviewed. Allergies Allergies Coded Allergies Yltckha-ICV-SuY Reductase Inhibitor (Verified Allergy, Unknown, 11/02/21) amoxicillin (Verified Allergy, Unknown, Diarrhea, 11/02/21) clavulanic acid (Verified Allergy, Unknown, Diarrhea, 11/02/21) Past Ydvkafa-Ynwoeh-Bcyzug Hx Patient Social History Marrital Status: Employed/Student: employed Tobacco Use?: No Substance use?: No Alcohol Use?: Yes Alcohol type: Beer Alcohol Frequency: Once in a while Pt feels they are or have been: No Immunizations Up To Date Tetanus Booster (TDap): Unknown Current Status Communicates: Verbally Primary Language: Pakistani Preferred Spoken Language: Pakistani Is interpretation needed?: No Sensory deficits: Vision impairment Implanted or Applied Medical D: Heart mechanical device Past Medical History Surgeries: Valve Replacement (aortic) Coronary Artery Disease, High Cholesterol, Hypertension Diabetes, Insulin dep Family Medical History Reviewed Nursing Family Hx Review of Systems Constitutional: No chills, No fever EENTM: no symptoms reported Respiratory: see HPI Cardiovascular: see HPI Gastrointestinal: no symptoms reported Genitourinary: no symptoms reported Musculoskeletal: no symptoms reported Skin: no symptoms reported Psychiatric/Neurological: No Symptoms Reported Physical Exam Physical Exam Vital Signs Vital Signs - First Documented 11/02/21 11/02/21 16:26 16:50 Temp 36.4 Pulse 116 Resp 20 B/P (MAP) 171/80 (110) Pulse Ox 100 O2 Delivery Nasal Cannula O2 Flow Rate 2.00 Capillary Refill : Less Than 3 Seconds Height, Weight, BMI Height: '" Weight: lbs. oz. kg; 26.92 BMI Method: General Appearance: No Apparent Distress, WD/WN HEENT: PERRL/EOMI, Moist Mucous Membranes Neck: Normal Inspection, Supple Respiratory: Lungs Clear, No Accessory Muscle Use, No Respiratory Distress Cardiovascular: Regular Rate, Rhythm, Systolic Murmur, Other (midline scar on chest) Gastrointestinal: Normal Bowel Sounds, Non Tender, Soft Extremity: Normal Capillary Refill, No Calf Tenderness, No Pedal Edema Neurologic/Psychiatric: Alert, Oriented x3, Normal Mood/Affect Results Results/Procedures Labs Laboratory Tests 11/02/21 16:31 11/03/21 04:40 Patient resulted labs reviewed. Imaging: Reviewed Imaging Report Imaging [facility] [place] NAME: [facility] REC#: [id number] [place] [facility] [place] 1965 [place]YSICIAN: AMMON BROWN MD ADMIT DATE: 11/02/21[place] [place] Date of Exam:11/02/21 CHEST 1 VIEW, AP/PA ONLY EXAMINATION: Chest 1 view HISTORY: Chest pain COMPARISON: None available. FINDINGS: The lungs are clear without edema or pneumonia. No pleural effusion or pneumothorax. Heart size is normal. Median sternotomy wires are aligned. IMPRESSION: 1. Clear lungs. Dictated by: Dictated on workstation # [id number] Dict: 11/02/[id number] Trans: 11/02/211704 CVB [id number] Interpreted by: VIMAL CUEVA MD Electronically signed by: VIMAL CUEVA MD 11/02/21 2442 Assessment/Plan Assessment and Plan Assess & Plan/Chief Complaint STEMI CAD Aortic valve replacement HTN management per primary s/p cath with intervention and repeat cath this morning due to on going chest pain Continue warfarin Continue Plavix and ASA Statin allergy so unable to use IDDMII Currently on pump BS well controlled, pt is well versed in his pump regimen Will allow to continue to dose per his normal correction DVT ppx: Already received heparin this AM and on Warfarin Diagnosis/Problems Diagnosis/Problems (1) Insulin dependent diabetes mellitus Status: Chronic (2) Hypertension Qualifiers: Hypertension type: primary hypertension Qualified Codes: I10 - Essential (primary) hypertension (3) Aortic valve replaced Status: Chronic (4) STEMI (ST elevation myocardial infarction) Status: Acute Qualifiers: Involved coronary artery: LAD coronary artery Qualified Codes: I21.02 - ST elevation (STEMI) myocardial infarction involving left anterior descending coronary artery Clinical Quality Measures AMI/AHF: ASA po Prior to arrival: Yes (81) RANJANA MOHR MD Nov 03, 2021 08:32
[2021-11-03] MEDS ORDERED: KCL 20 MEQ TAB (K-DUR) PO ONE (08:45)
--- NOTE | 2021-11-03 08:45 | Cardiac Cath Report ---
Cardiac Cath Report Physician (s)/Roadway Technician (s) Physician JOMAR VELOZ MD Pre-Procedure Diagnosis Pre-Procedure Diagnosis: Chest pain Post-Procedure Note Procedure Start Date: Nov 03, 2021 Name of Procedure: Coronary angiogram Findings/Procedure Note PROCEDURE NOTE: Patient was admitted with acute ST elevation myocardial infarction on November 02, 2021, continue to have recurrent chest pain overnight, had QS in the anterior leads with subtle ST elevation in the anterolateral leads. I decided to take him back to the [facility] and do coronary angiogram with the left heart catheter. After explaining the procedure to the patient, all pros and cons were explained, all questions were answered. The patient signed the consent and then he was placed on the cardiac catheterization laboratory. Groin was prepped SL fashion local anesthesia was used. Sheath placed in the right femoral artery. Robert left catheter was advanced to the left coronary system, multiple views were obtained. Then catheter was removed. At the end of the procedure the sheath was removed. Closure device was deployed FINDINGS: Hemodynamics LV was not evaluated Aorta 91/57 mean of 58 ANATOMY: Left Main is free of obstructive disease Left Anterior Descending is moderate in size, the stent in the mid LAD is patent, there are very tiny small diagonal branches that could be occluded or they are very small. Distally there is good flow Left Circumflex is large dominant artery with mild disease Right Coronary Artery was not evaluated LV Gram was not done Aorta evaluation with fluoroscopy showed the prosthetic valve ring with both leaflets functioning normally CONCLUSION: 1. Patent stent in the mid LAD with small vessel disease and small branches occlusion probably the cause of his recurrent chest pain 2. Otherwise nonobstructive disease DISCUSSION AND RECOMMENDATION: Continue to maximize medical therapy with antianginal therapy and aspirin and Plavix Anesthesia Type: Conscious Sedation Estimated blood loss (mL): 10 ml Contrast Amount: 30 ml Total Radiation Dose: 413 mGy Post-Procedure Diagnosis Post-operative diagnosis: Chest pain Coronary artery disease Hypertension Hyperlipidemia JOMAR VELOZ MD Nov 03, 2021 08:45
[2021-11-03] MEDS: ASPIRIN E.C. 81 MG (ECOTRIN) TAB PO SCH (09:15)
[2021-11-03] MEDS: LOSARTAN 25 MG (COZAAR) TAB PO SCH (09:15)
[2021-11-03] MEDS: CLOPIDOGREL 75 MG (PLAVIX) TABLET PO SCH (09:16)
[2021-11-03] MEDS: PANTOPRAZOLE 40 MG (PROTONIX) TAB PO SCH (09:16)
[2021-11-03] MEDS: ISOSORBIDE MONONITRATE 30 MG (IMDUR) TAB PO SCH (09:16)
[2021-11-03] MEDS: MAGNESIUM 1 GM/100 ML IVPB 100 ML IV SCH ×4 (09:59→13:16)
[2021-11-03] MEDS ORDERED: POTA-179 PO (10:30)
[2021-11-03] MEDS ORDERED: VALS320T15 PO (10:30)
[2021-11-03] MEDS ORDERED: WRF2.5T PO (10:30)
[2021-11-03] MEDS ORDERED: INSU100V SC (10:30)
[2021-11-03] MEDS ORDERED: CALC-250 PO (10:31)
[2021-11-03] MEDS ORDERED: ASPI-1238 PO (10:31)
[2021-11-03] MEDS ORDERED: NIAC500T24 PO (10:32)
[2021-11-03] MEDS ORDERED: MULT-974 PO (10:32)
[2021-11-03] MEDS ORDERED: MAGN400T39 PO (10:33)
[2021-11-03] MEDS: ACETAMINOPHEN 500 MG TAB (TYLENOL) PO PRN (13:58)
--- NOTE | 2021-11-03 16:14 | Tele-ICU Progress Note ---
Subjective Date Seen by a Provider: Nov 03, 2021 Time Seen by a Provider: 10:35 Subjective/Events-last exam (Tele-ICU Physician , Progress Note ) Available chart/ vitals / labs / Images reviewed Video assessment done using teleICU camera, rest of exam as per RN Discussed with RN , EXAM PER RN Events overnight : Afebrile FiO2 - I/O = Drips: Pressors: , hemodynamically stable A/P STEMI- s/p stenting of the LAD 11/02 - stable post cath today for increased CT - no interventions - as per cards Aortic valve replacement done in 2018, metallic valve -on Coumadin, folow INR DM II - ISS Plans in collaboration with bedside consultants and IM MDs. Discussed with RN to reach out if any questions or concerns A total of 15 minutes of critical care time was devoted to this patient today, required to treat and/or prevent further deterioration of critical care condition ( as above ) . Sepsis Event Evaluation Height, Weight, BMI Height: '" Weight: lbs. oz. kg; 26.92 BMI Method: Exam Exam Patient acknowledged, consented, and participated in this virtual visit which was conducted using real time audio/video Vital Signs Date Time Temp Pulse Resp B/P (MAP) Pulse Ox O2 Delivery O2 Flow Rate FiO2 11/03/21 15:00 74 13 96/71 96 Room Air 11/03/21 14:00 79 17 106/74 96 Room Air 11/03/21 12:33 87 11/03/21 12:00 74 15 102/71 96 Room Air 11/03/21 12:00 Room Air 11/03/21 11:00 72 14 105/70 94 Room Air 11/03/21 10:00 77 21 110/72 98 Room Air 11/03/21 09:00 74 26 120/71 98 Room Air 11/03/21 08:00 77 26 106/66 93 Room Air 11/03/21 08:00 Room Air 11/03/21 08:00 36.7 11/03/21 07:00 78 11/03/21 06:00 96 27 100/56 98 Room Air 11/03/21 05:00 75 11 102/77 97 Room Air 11/03/21 04:00 Room Air 11/03/21 04:00 74 15 102/64 94 Room Air 11/03/21 03:00 82 16 126/71 100 Room Air 11/03/21 02:00 69 18 121/67 96 Room Air 11/03/21 01:00 88 11/03/21 01:00 88 23 110/64 98 Room Air 11/03/21 00:00 73 12 99/59 92 Room Air 11/03/21 00:00 Room Air 11/02/21 23:00 86 37 101/63 94 Room Air 11/02/21 22:00 75 27 100/69 97 Room Air 11/02/21 21:00 80 116/72 99 Room Air 11/02/21 20:00 Room Air 11/02/21 20:00 78 9 100/65 97 Room Air 11/02/21 19:12 82 118/73 11/02/21 19:05 82 118/73 11/02/21 19:00 82 12 118/73 97 Room Air 11/02/21 19:00 82 11/02/21 18:51 84 11/02/21 18:45 77 11 121/69 100 Room Air 11/02/21 18:30 37.1 83 7 119/80 98 Room Air 11/02/21 18:15 87 19 121/94 96 11/02/21 18:11 88 11/02/21 18:05 95 Room Air 11/02/21 17:11 36.4 94 20 106/80 100 Nasal Cannula 2.00 2.00 11/02/21 16:50 100 Nasal Cannula 2.00 11/02/21 16:26 36.4 116 20 171/80 (110) I & O 11/03/21 07:00 Intake Total 550 ml Output Total 1350 ml Balance -800 ml Height & Weight Height: '" Weight: lbs. oz. kg; 26.92 BMI Method: General Appearance: No Apparent Distress, WD/WN HEENT: PERRL/EOMI, Moist Mucous Membranes Neck: Normal Inspection, Supple Respiratory: Lungs Clear, No Accessory Muscle Use, No Respiratory Distress Cardiovascular: Regular Rate, Rhythm, Systolic Murmur, Other (midline scar on chest) Capillary Refill: Less Than 3 Seconds Extremity: Normal Capillary Refill, No Calf Tenderness, No Pedal Edema Neurologic/Psychiatric: Alert, Oriented x3, Normal Mood/Affect Results Lab Laboratory Tests 11/02/21 16:31 11/03/21 04:40 Assessment/Plan Assessment/Plan ` FABIÁN HARRIS MD Nov 03, 2021 16:14
[2021-11-03] MEDS ORDERED: warFARin 4 MG (COUMADIN) TAB PO SCH (18:00)
[2021-11-03] MEDS: NITRO DRIP 25000 MCG/D5W 250 ML IV SCH (22:42)
[2021-11-04] MEDS: NS IV 1000 ML 1,000 ML IV SCH ×2 (00:22→03:30)
[2021-11-04 04:10] LABS: BASOPHILS # (AUTO) 0.1 10^3/uL (0.0-0.1); BASOPHILS % (AUTO) 1 % (0-10); EOSINOPHILS % (AUTO) 0 % (0-10); HEMATOCRIT 42 % (40-54); LYMPHOCYTES # (AUTO) 1.2 10^3/uL (1.0-4.0); LYMPHOCYTES % (AUTO) 12 % (12-44); MEAN CORPUSCULAR HEMOGLOBIN 31 pg (25-34); MEAN CORPUSCULAR HGB CONC 35 g/dL (32-36); MEAN CORPUSCULAR VOLUME 87 fL (80-99); MONOCYTES % (AUTO) 10 % (0-12); NEUTROPHILS # (AUTO) 7.3 10^3/uL (1.8-7.8); NEUTROPHILS % (AUTO) 73 % (42-75); PLATELET COUNT 144 10^3/uL (130-400)
[2021-11-04 04:18] LABS: INR 1.7 (0.8-1.4); PROTHROMBIN TIME PATIENT 20.8 SEC (12.2-14.7)
[2021-11-04 04:28] LABS: POTASSIUM 3.4 MMOL/L (3.6-5.0)
[2021-11-04 04:29] LABS: CALCIUM 8.6 MG/DL (8.5-10.1)
[2021-11-04 04:34] LABS: CREATININE SERUM 1.07 MG/DL (0.60-1.30)
[2021-11-04] MEDS ORDERED: POTASSIUM CL 10MEQ/50ML IVPB 50 ML IV SCH (06:00)
[2021-11-04] MEDS ORDERED: MAGNESIUM 1 GM/100 ML IVPB 100 ML IV SCH (06:00)
[2021-11-04] MEDS ORDERED: KCL 20 MEQ TAB (K-DUR) PO SCH (06:00)
[2021-11-04] MEDS ORDERED: KCL 20 MEQ TAB (K-DUR) PO ONE (08:00)
[2021-11-04] MEDS: ISOSORBIDE MONONITRATE 30 MG (IMDUR) TAB PO SCH (09:23)
[2021-11-04] MEDS: PANTOPRAZOLE 40 MG (PROTONIX) TAB PO SCH (09:23)
[2021-11-04] MEDS: ASPIRIN E.C. 81 MG (ECOTRIN) TAB PO SCH (09:23)
[2021-11-04] MEDS: LOSARTAN 25 MG (COZAAR) TAB PO SCH (09:23)
[2021-11-04] MEDS: CLOPIDOGREL 75 MG (PLAVIX) TABLET PO SCH (09:24)
[2021-11-04] MEDS ORDERED: ISOS30TA82 PO (09:52)
[2021-11-04] MEDS ORDERED: LOSA25TA41 PO (09:52)
[2021-11-04] MEDS ORDERED: PANT40TA52 PO (09:52)
[2021-11-04] MEDS ORDERED: MTP25TSR PO (09:52)
[2021-11-04] MEDS ORDERED: CLOP75TA28 PO (09:52)
[2021-11-04] MEDS ORDERED: EMPA10TA PO (09:52)
[2021-11-04] MEDS ORDERED: ATOR80TA76 PO (09:52)
--- NOTE | 2021-11-04 09:53 | Discharge Inst-Post CATH ---
Discharge Inst-CATH/EP Problems Reviewed?: Yes Post Cardiac Cath/EP D/C Inst Follow Up/Plan Appointment with Dr. Hughes's office in 1 to 2 weeks <b>CARDIAC CATH/EP PROCEDURE DISCHARGE INSTRUCTIONS</b> ACTIVITY * Go Home directly and rest. * Limit activity of the leg (or wrist if it was used) for 7 days including aer obics, swimming, jogging, bicycling, etc. * Restrict stair-climbing for 7 days if possible, if not, climb up with your non-cath leg, then bring together on the same step. * Avoid lifting, pushing, pulling or excessive movement of the affected extremi ty for 7 days. * Customary sexual activity may be resumed after 2 days-use caution not to use a position that strains or causes pain to the affected extremity. * No driving for 24 hours. * NO SMOKING. * Avoid straining for bowel movements for 7 days. * Gentle walking on level ground is allowed. * Returning to work will depend on the type of procedure and the results. Your doctor will discuss this with you. CALL YOUR DOCTOR FOR ANY OF THE FOLLOWING: *If bleeding from the puncture site occurs- Apply gentle pressure to site with clean cloth and call your doctor or EMS. * If a knot or lump forms under the skin, increases in size, or causes pain. * If bruising appears to be worsening or moving further down your leg instead of disappearing. * Temperature above 101 F. CARE OF YOUR GROIN INCISION; * Bruising or purple discoloration of the skin near the puncture site is common. * You may shower only, no bathtub bathing for 5 days. Be careful to avoid slipping as your leg may feel stiff. * If a closure device was used on your femoral artery, please see the attached guide regarding care of the device and your leg. * Leave dressing on FOR 24 hours. CARE OF YOUR WRIST INCISION; * Bruising or purple discoloration of the skin near the puncture site is common. * You may shower. * DO NOT submerge wrist. * Leave dressing on FOR 24 hours. JOMAR HUGHES MD Nov 04, 2021 09:53
--- NOTE | 2021-11-04 09:58 | Cardiology Discharge Summary ---
Discharge Summary Hospital Course Problems Reviewed?: Yes Hospital Course Date of Admission: Nov 02, 2021 at 18:51 Admission Diagnosis : Family Physician/Provider: No,Local Physician Date of Discharge: 11/04/21 Discharge Diagnosis: [ STEMI CAD Hypertension Hyperlipidemia DM] Hospital Course: [ Acute chest pain. Continue to have recurrent episodes of chest pain. Has Q waves in the anterior leads with slight ST elevation Slight response to nitroglycerin and morphine but persistent pain. ESR is normal, troponin level is elevated due to washout. Repeat cardiac catheterization was done on November 03, 2021 showing patent stent with small vessel disease including the diagonal branches. Acute ST elevation myocardial infarction in the anterolateral leads on November 02, 2021. Emergency cardiac catheterization and thrombectomy and stenting of the LAD. Patient continue to have chest pain, cardiac catheterization was repeated on November 03, 2021 showing patent stent with small vessel disease including the diagon al branches. We will continue on aspirin and Plavix and Coumadin. Coronary artery disease, reporting cardiac catheterization prior to his valve surgery in 2018 did not require any stenting Cardiac catheterization was carried out on November 02, 2021 showed occluded LAD with a thrombus in the mid LAD. Successful thrombectomy with door to thrombectomy time 61 minutes Emergency stenting of the LAD with deployment of 2.75 x 15 mm velia point stent with excellent results and establishment of excellent flow. Repeat cardiac catheterization showed patent stent with small vessel disease in the diagonal branches. Congestive heart failure, acute left ventricular systolic dysfunction, ischemic in nature with akinesia of the anterior wall anterior septum and anterior apex, ejection fraction 30 to 35%. Patient was started on beta-blockers, ARB and isosorbide. I will arrange for a LifeVest. Patent [place] noted incidentally. Aortic valve replacement done in 2018, metallic valve, maintained on Coumadin, reporting INR is well controlled. Will monitor INR. Hypertension, controlled, monitor blood pressure Hyperlipidemia, I tried to use statin, patient has severe intolerance to multiple statins with severe weakness and fatigue. We discussed the possibility of Repatha, patient reported that initially he used it for a year then he was unable to tolerate it with severe weakness. We discussed the possibility of using Leqvio and we will try to get him qualified as an outpatient History of chronic renal insufficiency. 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 prior to his aortic valve replacement Status post left shoulder surgery done in June 2021] Labs and Pending Lab Test: Laboratory Tests 11/04/21 03:57: White Blood Count 10.0, Red Blood Count 4.88, Hemoglobin 15.0, Hematocrit 42, Mean Corpuscular Volume 87, Mean Corpuscular Hemoglobin 31, Mean Corpuscular Hemoglobin Concent 35, Red Cell Distribution Width 13.5, Platelet Count 144, Mean Platelet Volume 11.0, Immature Granulocyte % (Auto) 5, Neutrophils (%) (Auto) 73, Lymphocytes (%) (Auto) 12, Monocytes (%) (Auto) 10, Eosinophils (%) (Auto) 0, Basophils (%) (Auto) 1, Neutrophils # (Auto) 7.3, Lymphocytes # (Auto) 1.2, Monocytes # (Auto) 1.0, Eosinophils # (Auto) 0.0, Basophils # (Auto) 0.1, Immature Granulocyte # (Auto) 0.5H, Prothrombin Time 20.8H, INR Comment 1.7H, Sodium Level 134L, Potassium Level 3.4L, Chloride Level 100, Carbon Dioxide Level 22, Anion Gap 12, Blood Urea Nitrogen 14, Creatinine 1.07, Estimat Glomerular Filtration Rate 80, BUN/Creatinine Ratio 13, Glucose Level 141H, Calcium Level 8.6 Home Meds Active Jardiance (Empagliflozin) 10 Mg Tablet 10 Mg PO DAILY Pantoprazole Sodium 40 Mg Tablet.dr 40 Mg PO DAILY Losartan Potassium 25 Mg Tablet 25 Mg PO DAILY Metoprolol Succinate 25 Mg Tab.er.24h 25 Mg PO DAILY Isosorbide Mononitrate ER (Isosorbide Mononitrate) 30 Mg Tab.er.24h 30 Mg PO DAILY Clopidogrel (Clopidogrel Bisulfate) 75 Mg Tablet 75 Mg PO DAILY Reported Magnesium (Magnesium Oxide) 400 Mg Magnesium Tablet 800 Mg PO BID TAKES 2 (400MG) TABS Niacin (Niacinamide) 500 Mg Tablet 500 Mg PO HS Multi-Vitamin Daily (Multivitamin) 1 Each Tablet 1 Each PO HS Aspirin EC (Aspirin) 81 Mg Tablet.dr 81 Mg PO DAILY Vitamin D3 (Cholecalciferol (Vitamin D3)) 125 Mcg (5000 Unit) Tablet 125 Mcg PO DAILY Humalog (Insulin Lispro) 100 Unit/Ml Vial 0 SC UD PER PATIENT ADJUSTMENT AVERAGE 65 UNITS DAILY MAX 80 UNITS Warfarin Sodium 2.5 Mg Tablet 2.5 Mg PO HS Potassium Chloride 20 Meq Tab.er.prt 20 Mg PO DAILY Assessment/Pt DC Instructions Acute ST elevation myocardial infarction in the anterior wall Congestive heart failure, acute left ventricular systolic dysfunction, ischemic cardiomyopathy Discharge Diet: No Restrictions, Cardiac Diet Discharge Physical Examination Allergies: Coded Allergies: Pqrabjs-DTL-LzK Reductase Inhibitor (Verified Allergy, Unknown, 11/02/21) amoxicillin (Verified Allergy, Unknown, Diarrhea, 11/02/21) clavulanic acid (Verified Allergy, Unknown, Diarrhea, 11/02/21) General Appearance: No Apparent Distress, WD/WN HEENT: PERRL/EOMI, TMs Normal, Normal ENT Inspection, Pharynx Normal Respiratory: Chest Non Tender, Lungs Clear, Normal Breath Sounds, No Accessory Muscle Use, No Respiratory Distress Cardiovascular: Regular Rate, Rhythm, No Edema, No Gallop, Other (Metallic click) Gastrointestinal: Normal Bowel Sounds, No Organomegaly, No Pulsatile Mass, Non Tender, Soft Extremity: Normal Capillary Refill, Normal Inspection, Normal Range of Motion, Non Tender, No Calf Tenderness Skin: Normal Color, Warm/Dry Neurologic/Psychiatric: Alert, Oriented x3, No Motor/Sensory Deficits, Normal 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
== END 2021-11-04 10:35 | disposition home or self-care (01) | DRG 246 ==
LOC: ER 16:30 → SDC 16:50 → ICU 18:05 → EDLOC 18:51 → ICU 18:51 → SDC 18:51
PROVIDERS: ADMIT Internal Medicine Cardiovascular Disease; ATTEND Internal Medicine Cardiovascular Disease
PROC: 02C03ZZ Extirpation of Matter from Coronary Artery, One Artery, Percutaneous Approach (ICD-10-PCS; principal; 2021-11-02)
PROC: 027034Z Dilation of Coronary Artery, One Artery with Drug-eluting Intraluminal Device, Percutaneous Approach (ICD-10-PCS; 2021-11-02)
PROC: B2111ZZ Fluoroscopy of Multiple Coronary Arteries using Low Osmolar Contrast (ICD-10-PCS; 2021-11-02)
PROC: B2111ZZ Fluoroscopy of Multiple Coronary Arteries using Low Osmolar Contrast (ICD-10-PCS; 2021-11-03)
DX: I21.02 ST elevation (STEMI) myocardial infarction involving left anterior descending coronary artery (principal); I50.21 Acute systolic (congestive) heart failure; I13.0 Hypertensive heart and chronic kidney disease with heart failure and stage 1 through stage 4 chronic kidney disease, or unspecified chronic kidney disease; Q21.1 Atrial septal defect; I25.10 Atherosclerotic heart disease of native coronary artery without angina pectoris; E11.22 Type 2 diabetes mellitus with diabetic chronic kidney disease; N18.9 Chronic kidney disease, unspecified; I69.398 Other sequelae of cerebral infarction; H54.61 Unqualified visual loss, right eye, normal vision left eye; E78.5 Hyperlipidemia, unspecified; Z79.4 Long term (current) use of insulin; Z79.01 Long term (current) use of anticoagulants; Z95.2 Presence of prosthetic heart valve; Z79.82 Long term (current) use of aspirin; Z88.1 Allergy status to other antibiotic agents; Z88.8 Allergy status to other drugs, medicaments and biological substances
CPT/HCPCS: 36415; 71045; 80048; 80053; 80061; 82947; 83735; 83874; 84484; 85025; 85027; 85347; 85610; 85652; 85730; 93005; 93041; 93306; 93454

== ENCOUNTER 2021-11-18 06:26 | Emergency (ER) | payer OTHER ==
[~2021-11-18] VITALS: Ht 167.7 cm; Wt 75.4 kg
[~2021-11-18 06:26] MED LIST: ASPI-1238 PO; ATOR80TA76 PO; CALC-250 PO; CLOP75TA28 PO; EMPA10TA PO; INSU100V SC; ISOS30TA82 PO; LOSA25TA41 PO; MAGN400T39 PO; MTP25TSR PO; MULT-974 PO; NIAC500T24 PO; PANT40TA52 PO; POTA-179 PO; VALS320T15 PO; WRF2.5T PO
[2021-11-18] MEDS ORDERED: ASPIRIN 81 MG CHEW (CHILDREN'S ASA) PO ONE (07:00)
--- NOTE | 2021-11-18 07:00 | ED Chest Pain ---
General Chief Complaint: General Problems/Pain Stated Complaint: JAW PAIN,CARDIAC HISTORY,HEART ATTACK IN JUNE Source: patient, family () Exam Limitations: no limitations History of Present Illness Date Seen by Provider: Nov 18, 2021 Time Seen by Provider: 06:49 Initial Comments Patient is a 56-year-old male with history of coronary artery disease and aortic valve replacement, mechanical on Coumadin who presents to the emergency department with a chief complaint of right clavicular pain pain kind of radiating up into his jaw was brief in nature. He woke to go to the bathroom ar ound 515/530 this morning. He states he did have some nausea and had been sweating a little bit when he got up. His states its not unusual for him to have night sweats. He states that he has been compliant with his Plavix, Coumadin and daily aspirin. He is taken all of his morning medications except for his Coumadin which he takes at night. He was recently in the hospital on November 02 with an acute myocardial infarction. He had thrombectomy to the LAD where he had a prior stent. He is completely pain-free at this moment. He is having frequent PVCs on telemetry and on his EKG. EKG shows some mild ST elevation in the anterior lateral leads, 1 mm V2, approximately at baseline V3 with inverted T waves in V45 and 6. Again he is completely asymptomatic. No recent illnesses such as fevers, chills, cough or congestion. 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 Associated Symptoms: denies symptoms Allergies and Home Medications Allergies Coded Allergies: Kxrrubp-ETC-XgJ Reductase Inhibitor (Verified Allergy, Unknown, 11/02/21) amoxicillin (Verified Allergy, Unknown, Diarrhea, 11/02/21) clavulanic acid (Verified Allergy, Unknown, Diarrhea, 11/02/21) Patient Home Medication List Home Medication List Reviewed: Yes Aspirin (Aspirin EC) 81 Mg Tablet., 81 MG PO DAILY, (Reported) Entered as Reported by: JONI SYED on 11/03/21 1031 Cholecalciferol (Vitamin D3) (Vitamin D3) 125 Mcg (5000 Unit) Tablet, 125 MCG PO DAILY, (Reported) Entered as Reported by: JONI SYED on 11/03/21 1031 Clopidogrel Bisulfate (Clopidogrel) 75 Mg Tablet, 75 MG PO DAILY Prescribed by: JOMAR HUGHES on 11/04/21 09 Empagliflozin (Jardiance) 10 Mg Tablet, 10 MG PO DAILY Prescribed by: JOMAR HUGHES on 11/04/21 09 Insulin Lispro (Humalog) 100 Unit/Ml Vial, 0 SC UD, (Reported) Entered as Reported by: JONI SYED on 11/03/21 1030 Isosorbide Mononitrate (Isosorbide Mononitrate ER) 30 Mg Tab.er.24h, 60 MG PO DAILY Prescribed by: TIGRE BAEZA JR, MD on 11/18/21 0913 Losartan Potassium (Losartan Potassium) 25 Mg Tablet, 25 MG PO DAILY Prescribed by: JOMAR HUGHES on 11/04/21 09 Magnesium Oxide (Magnesium) 400 Mg Magnesium Tablet, 800 MG PO BID, (Reported) Entered as Reported by: JONI SYED on 11/03/21 1033 Metoprolol Succinate (Metoprolol Succinate) 25 Mg Tab.er.24h, 25 MG PO DAILY Prescribed by: JOMAR HUGHES on 11/04/21 09 Multivitamin (Multi-Vitamin Daily) 1 Each Tablet, 1 EACH PO HS, (Reported) Entered as Reported by: JONI SYED on 11/03/21 103 Niacinamide (Niacin) 500 Mg Tablet, 500 MG PO HS, (Reported) Entered as Reported by: JONI SYED on 11/03/21 103 Pantoprazole Sodium (Pantoprazole Sodium) 40 Mg Tablet.dr, 40 MG PO DAILY Prescribed by: JOMAR HUGHES on 11/04/21 09 Potassium Chloride (Potassium Chloride) 20 Meq Tab.er.prt, 20 MG PO DAILY, (Reported) Entered as Reported by: JONI SYED on 11/03/21 103 Warfarin Sodium (Warfarin Sodium) 2.5 Mg Tablet, 2.5 MG PO HS, (Reported) Entered as Reported by: JNOI SYED on 11/03/21 103 Review of Systems Review of Systems Constitutional: see HPI EENTM: Other (right jaw pain) Respiratory: No Symptoms Reported Cardiovascular: Chest Pain (right upper chest) Gastrointestinal: Nausea Genitourinary: No Symptoms Reported Musculoskeletal: no symptoms reported Skin: no symptoms reported All Other Systems Reviewed Negative Unless Noted: Yes Past Snyirqe-Ggxodv-Wqideg Hx Patient Social History Tobacco Use?: No Use of E-Cig and/or Vaping dev: No Substance use?: No Alcohol Use?: Yes Alcohol type: Beer, Hard Liquor, Wine Alcohol Frequency: Several times a month Pt feels they are or have been: No Immunizations Up To Date Influenza Vaccine Up-to-Date: No; Not Current Past Medical History Surgery/Hospitalization HX: AORTIC VALVE REPLACEMENT, L SHOULDER TOTAL, APPY, HTN, DM Valve Replacement Coronary Artery Disease, High Cholesterol, Hypertension Diabetes, Insulin dep Physical Exam Vital Signs Vital Signs - First Documented 11/18/21 06:51 Temp 37.0 Pulse 79 Resp 20 B/P (MAP) 128/78 (95) Pulse Ox 98 O2 Delivery Room Air Capillary Refill : Height, Weight, BMI Height: '" Weight: lbs. oz. 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 Norm as Tested Skin: Normal Color, Warm/Dry Progress/Results/Core Measures Results/Orders Lab Results Laboratory Tests Test 11/18/21 06:55 11/18/21 08:32 Range/Units White Blood Count 6.5 4.3-11.0 10^3/uL Red Blood Count 4.92 4.30-5.52 10^6/uL Hemoglobin 15.1 13.3-17.7 g/dL Hematocrit 44 40-54 % Mean Corpuscular Volume 89 80-99 fL Mean Corpuscular Hemoglobin 31 25-34 pg Mean Corpuscular Hemoglobin Concent 34 32-36 g/dL Red Cell Distribution Width 13.9 10.0-14.5 % Platelet Count 277 130-400 10^3/uL Mean Platelet Volume 10.4 9.0-12.2 fL Immature Granulocyte % (Auto) 4 % Neutrophils (%) (Auto) 59 42-75 % Lymphocytes (%) (Auto) 27 12-44 % Monocytes (%) (Auto) 8 0-12 % Eosinophils (%) (Auto) 1 0-10 % Basophils (%) (Auto) 1 0-10 % Neutrophils # (Auto) 3.8 1.8-7.8 10^3/uL Lymphocytes # (Auto) 1.8 1.0-4.0 10^3/uL Monocytes # (Auto) 0.5 0.0-1.0 10^3/uL Eosinophils # (Auto) 0.1 0.0-0.3 10^3/uL Basophils # (Auto) 0.1 0.0-0.1 10^3/uL Immature Granulocyte # (Auto) 0.3 H 0.0-0.1 10^3/uL Prothrombin Time 19.6 H 12.2-14.7 SEC INR Comment 1.6 H 0.8-1.4 Activated Partial Thromboplast Time 35 24-35 SEC Sodium Level 139 135-145 MMOL/L Potassium Level 3.9 3.6-5.0 MMOL/L Chloride Level 104 98-107 MMOL/L Carbon Dioxide Level 25 21-32 MMOL/L Anion Gap 10 5-14 MMOL/L Blood Urea Nitrogen 27 H 7-18 MG/DL Creatinine 1.33 H 0.60-1.30 MG/DL Estimat Glomerular Filtration Rate 62 BUN/Creatinine Ratio 20 Glucose Level 163 H 70-105 MG/DL Calcium Level 9.1 8.5-10.1 MG/DL Corrected Calcium 9.3 8.5-10.1 MG/DL Magnesium Level 1.5 L 1.6-2.4 MG/DL Total Bilirubin 0.6 0.1-1.0 MG/DL Aspartate Amino Transf (AST/SGOT) 25 5-34 U/L Alanine Aminotransferase (ALT/SGPT) 33 0-55 U/L Alkaline Phosphatase 88 40-136 U/L Myoglobin 57.1 10.0-92.0 NG/ML Troponin I 0.355 *H 0.347 *H <0.028 NG/ML Total Protein 6.6 6.4-8.2 GM/DL Albumin 3.7 3.2-4.5 GM/DL My Orders Orders - AMMON BROWN MD Ekg Tracing (6/18/22 06:34) Cbc With Automated Diff (11/18/21 07:00) Magnesium (11/18/21 07:00) Chest 1 View, Ap/Pa Only (11/18/21 07:00) Comprehensive Metabolic Panel (11/18/21 07:00) Myoglobin Serum (11/18/21 07:00) Protime With Inr (11/18/21 07:00) Partial Thromboplastin Time (11/18/21 07:00) O2 (11/18/21 07:00) Monitor-Rhythm Ecg Trace Only (11/18/21 07:00) Lipid Panel (11/19/21 06:00) Ed Iv/Invasive Line Start (11/18/21 07:00) Troponin I [place] (11/18/21 07:00) Aspirin Chewable Tablet (Baby Aspirin Ch (11/18/21 07:00) Medications Given in ED Current Medications Medications Dose Ordered Sig/Breanna Route Start Time Stop Time Status Last Admin Dose Admin Aspirin 243 mg ONCE ONCE PO 11/18/21 07:00 11/18/21 07:01 DC 11/18/21 07:22 243 MG Isosorbide Mononitrate 30 mg ONCE ONCE PO 11/18/21 08:45 11/18/21 08:49 DC 11/18/21 09:05 30 MG Vital Signs/I&O 11/18/21 06:51 Temp 37.0 Pulse 79 Resp 20 B/P (MAP) 128/78 (95) Pulse Ox 98 O2 Delivery Room Air Admisison Planning May Need Admission (Planning): 07:43 Progress Progress Note #1: Time: 07:43 Progress Note Called by Lab for elevated troponin of 0.355 previous was 11/[address] Aryan Gutiérrez have patient Nader Hutchins he is 56 I admitted him back on November 02 with a STEMI he is got a mechanical aortic valve on Coumadin and he had a thrombus in the LAD that Dr. Hughes 1 and removed and stented otherwise no obstructive disease woke up this morning at about 515 with likely right clavicular upper chest pain that radiated into his jaw said he gets night sweats he was little sweaty and he was nauseous he was completely pain- free when he came in EKG shows some elevation in V2 V4 V5 and V6 with inverted T waves pretty deeply inverted T waves I mean the read on the EKG is acute LA but completely pain-free no symptoms his troponin is 0.355 today on the the last 1 in the computer was 6 3 he had a troponin of 108 at [facility] he is outside the window with a troponin of 10 to 14 days it should be down but the EKG looks different from when he was discharged he was actually cathed twice once on the second had recurrent chest pain with a little EKG changes overnight on the third Ellen took him back on the fourth and said that he had some small subtle branches that may be occluded causing recurrent chest pain but just tiny ones so but right was free was clear so he looks great he is not overly hypertensive he is kind of doing this bigeminy PVC thing his mag is a teeny bit low is 1.5 otherwise not sick it does the white bump I yeah I think it was 6 6 maybe the last 1 that I looked at and I mean it it does the T waves are all now inverted but that could be changed home Progress Note #2: Time: 07:50 Progress Note DIscussed with Dr Baeza @ 0746; will be down to the ER to see the patient shortly Progress Note #3: Time: 09:18 Progress Note second troponin dropped just a few points to 0.347. Dr Baeza back down in the ED to follow patient and discusse dispo plans - he is getting a quick beside echo and then will likely make plans for discharge. 0924 Dr Baeza states that EF looks a little better. He is comfortable with the patient being discharged to home. Is increasing his Imdur to 60mg daily. Initial ECG Impression Date: Nov 18, 2021 Initial ECG Impression Time: 06:55 Initial ECG Rate: 79 Initial ECG Rhythm: Normal Sinus Initial ECG Intervals MS interval 150 QRS [address] segment elevation V2, V4 5 and 6 of 1 mm, inverted T waves across the precordium, ectopy/PVCs noted Diagnostic Imaging Diagonstic Imaging: Xray Plain Films/CT/US/NM/MRI: chest Comments [facility] [place], [place] NAME: NADER [facility]GROVE [facility] REC#: [id number] PT STATUS: REG ER : 1965 PHYSICIAN: AMMON RBOWN MD ADMIT DATE: 11/18/21/ER Signed Date of Exam:11/18/21 CHEST 1 VIEW, AP/PA ONLY EXAMINATION: Chest 1 view HISTORY: Chest pain. External defibrillator in place. COMPARISON: 11/02/2021. FINDINGS: The lung volumes are normal. No focal consolidation is seen. No large pleural effusion or pneumothorax is seen. Stable size of the cardiac silhouette with post CABG changes. There is increase in central pulmonary vascular congestion. No acute osseous abnormality is seen. IMPRESSION: 1. Increasing central pulmonary vascular congestion. No overt pulmonary edema. Dictated by: Dictated on workstation # [id number] Dict: 11/18/21728 Trans: 11/18/21 0732 [facility] [id number] Interpreted by: LILO STEPHENSON DO Electronically signed by: LILO STEPHENSON DO 11/18/21 0732 Departure Impression Primary Impression: Chest pain Qualified Codes: R07.9 - Chest pain, unspecified Additional Impressions: Coronary artery disease Qualified Codes: I25.10 - Atherosclerotic heart disease of [place] coronary artery without angina pectoris History of aortic valve replacement Disposition: HOME, SELF-CARE Condition: Improved Departure-Patient Inst. Decision time for Depature: 09:23 Referrals: JOMAR HUGHES MD ,LOCAL PHYSICIAN (PCP) Primary Care Physician Patient Instructions: Chest Pain Add. Discharge Instructions: Continue your daily medications as prescribed except for the Imdur. This has been increased to 60 mg. A prescription has been sent. Please follow-up with your [facility] as routinely scheduled. Come back to the emergency department for any new, concerning or emergent complaints. Scripts Isosorbide Mononitrate (Isosorbide Mononitrate ER) 30 Mg Tab.er.24h 60 MG PO DAILY, #30 TAB 4 Refills Prov: TIGRE BAEZA JR, MD 11/18/21 Copy Copies To 1: JOMAR HUGHES MD, KATHRYN M MD Nov 18, 2021 06:59
[2021-11-18 07:06] LABS: BASOPHILS # (AUTO) 0.1 10^3/uL (0.0-0.1); BASOPHILS % (AUTO) 1 % (0-10); EOSINOPHILS # (AUTO) 0.1 10^3/uL (0.0-0.3); EOSINOPHILS % (AUTO) 1 % (0-10); HEMATOCRIT 44 % (40-54); HEMOGLOBIN 15.1 g/dL (13.3-17.7); LYMPHOCYTES # (AUTO) 1.8 10^3/uL (1.0-4.0); LYMPHOCYTES % (AUTO) 27 % (12-44); MEAN CORPUSCULAR HEMOGLOBIN 31 pg (25-34); MEAN CORPUSCULAR HGB CONC 34 g/dL (32-36); MEAN CORPUSCULAR VOLUME 89 fL (80-99); MEAN PLATELET VOLUME 10.4 fL (9.0-12.2); MONOCYTES # (AUTO) 0.5 10^3/uL (0.0-1.0); MONOCYTES % (AUTO) 8 % (0-12); NEUTROPHILS # (AUTO) 3.8 10^3/uL (1.8-7.8); NEUTROPHILS % (AUTO) 59 % (42-75); PLATELET COUNT 277 10^3/uL (130-400); WHITE BLOOD COUNT 6.5 10^3/uL (4.3-11.0)
[2021-11-18 07:17] LABS: ALBUMIN 3.7 GM/DL (3.2-4.5); POTASSIUM 3.9 MMOL/L (3.6-5.0)
[2021-11-18 07:18] LABS: CALCIUM 9.1 MG/DL (8.5-10.1)
[2021-11-18 07:19] LABS: TOTAL PROTEIN 6.6 GM/DL (6.4-8.2)
[2021-11-18 07:21] LABS: BILIRUBIN,TOTAL 0.6 MG/DL (0.1-1.0); INR 1.6 (0.8-1.4); PROTHROMBIN TIME PATIENT 19.6 SEC (12.2-14.7)
[2021-11-18 07:23] LABS: CREATININE SERUM 1.33 MG/DL (0.60-1.30)
[2021-11-18 07:26] LABS: MAGNESIUM 1.5 MG/DL (1.6-2.4)
--- NOTE | 2021-11-18 07:31 | Diagnostic Imaging Report ---
EXAMINATION: Chest 1 view HISTORY: Chest pain. External defibrillator in place. COMPARISON: 11/02/2021. FINDINGS: The lung volumes are normal. No focal consolidation is seen. No large pleural effusion or pneumothorax is seen. Stable size of the cardiac silhouette with post CABG changes. There is increase in central pulmonary vascular congestion. No acute osseous abnormality is seen. IMPRESSION: 1. Increasing central pulmonary vascular congestion. No overt pulmonary edema. Dictated by: Dictated on workstation # [id number]
[2021-11-18] MEDS ORDERED: ISOSORBIDE MONONITRATE 30 MG (IMDUR) TAB PO ONE (08:45)
--- NOTE | 2021-11-18 08:51 | Consultation-Cardiology ---
HPI-Cardiology Cardiology Consultation: Date of Consultation 11/18/21 Date of Admission 11/18/21 Attending Physician Dania,Local Physician Admitting Physician Admitting Physician: Attending Physician: Consulting Physician TIGRE HARRISON JR, MD HPI: Time Seen by a Provider: 08:46 Chief Complaint: REASON FOR CONSULTATION: Chest pain with abnormal electrocardiogram and troponin level. I had the pleasure of seeing Nader in the emergency room at [facility] in [place], [place] this morning. He has a history of aortic stenosis with a previous mechanical aortic valve replacement in 2017 and then an acute anterior myocardial infarction in November 2021 that was treated with 1 drug-eluting stent to the mid left anterior descending coronary artery. Following that stent procedure, he was having persistent chest discomfort while in the hospital and ended up undergoing another cardiac catheterization. The second cardiac catheterization revealed the stent to be patent. He was then placed on long- acting nitrates. He was discharged home 2 days after the myocardial infarction. For the first few days while he was home, he was having some intermittent chest tightness with radiation to his right jaw. This was similar to his symptom with the myocardial infarction but much less severe. After a few days, the chest discomfort resolved. He went back to his normal activities. It was doing well until this morning when he got up to urinate and had some pressure just below his right clavicle. This then radiated to his right jaw. He denies any other associated complaints. He took his morning medication. He did not have any of the chest tightness that he had experienced with the myocardial infarction or for the first few days that he had gone home. The pain near his right clavicle slowly started to improve but he was concerned and came to the emergency room for further evaluation. By the time he arrived in the emergency room, the pain near his right clavicle and in his right jaw had completely resolved. He has been compliant with all of his medications since discharge. He denies dyspnea, paroxysmal nocturnal dyspnea or orthopnea. He does have a long history of premature ventricular complexes and sometimes when these are frequent, he will have palpitations with a sensation of skipped or strong heartbeats. He did feel some of this this morning but denies any associated complaints. He denies lightheadedness, syncope, or ankle edema. When he arrived in the emergency room he had screening blood work and an electrocardiogram. His troponin level was elevated and his electrocardiogram looked slightly different than the electrocardiogram that had been obtained 2 days following the myocardial infarction. Because of this constellation of clinical findings and his chest discomfort, a cardiology consultation was requested. When I saw the patient, he was still pain-free. 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 He is a lifelong non-smoker. Certain portions of this document may have been dictated utilizing voice recognition technology. Inherent to this technology, typographical and grammatical errors may exist. As much as I am diligent to identify and correct these mistakes, some errors may remain in the document. Review of Systems-Cardiology Review of Systems Other comments Review of 10 organ systems is as per the history of present illness, otherwise negative. All Other Systems Reviewed Negative Unless Noted: Yes QJD-Acnasm-Hgooss Hx Patient Social History Marrital Status: Smoking Status: Never a Smoker Have you traveled recently?: No Alcohol Use?: Yes Pt feels they are or have been: No Past Medical History PMH As described under Assessment. Family Medical History Family Medical History: His father had a myocardial infarction in his 40s and then from a myocardial infarction at the age of 63. Allergies and Home Medications Allergies Coded Allergies: Xystdyh-YDY-McX Reductase Inhibitor (Verified Allergy, Unknown, 11/02/21) amoxicillin (Verified Allergy, Unknown, Diarrhea, 11/02/21) clavulanic acid (Verified Allergy, Unknown, Diarrhea, 11/02/21) Patient Home Medication List Home Medication List Reviewed: Yes Aspirin (Aspirin EC) 81 Mg Tablet.dr, 81 MG PO DAILY, (Reported) Entered as Reported by: JONI SYED on 11/03/21 1031 Cholecalciferol (Vitamin D3) (Vitamin D3) 125 Mcg (5000 Unit) Tablet, 125 MCG PO DAILY, (Reported) Entered as Reported by: JONI SYED on 11/03/21 1031 Clopidogrel Bisulfate (Clopidogrel) 75 Mg Tablet, 75 MG PO DAILY Prescribed by: JOMAR VELOZ on 11/04/21 0952 Empagliflozin (Jardiance) 10 Mg Tablet, 10 MG PO DAILY Prescribed by: JOMAR VELOZ on 11/04/21 0952 Insulin Lispro (Humalog) 100 Unit/Ml Vial, 0 SC UD, (Reported) Entered as Reported by: JONI SYED on 11/03/21 1030 Isosorbide Mononitrate (Isosorbide Mononitrate ER) 30 Mg Tab.er.24h, 60 MG PO DAILY Prescribed by: TIGRE HARRISON JR, MD on 11/18/21 0913 Losartan Potassium (Losartan Potassium) 25 Mg Tablet, 25 MG PO DAILY Prescribed by: JOMAR VELOZ on 11/04/21 09 Magnesium Oxide (Magnesium) 400 Mg Magnesium Tablet, 800 MG PO BID, (Reported) Entered as Reported by: JONI SYED on 11/03/21 1033 Metoprolol Succinate (Metoprolol Succinate) 25 Mg Tab.er.24h, 25 MG PO DAILY Prescribed by: JOMAR VELOZ on 11/04/21 0952 Multivitamin (Multi-Vitamin Daily) 1 Each Tablet, 1 EACH PO HS, (Reported) Entered as Reported by: JONI SYED on 11/03/21 1032 Niacinamide (Niacin) 500 Mg Tablet, 500 MG PO HS, (Reported) Entered as Reported by: JONI SYED on 11/03/21 1032 Pantoprazole Sodium (Pantoprazole Sodium) 40 Mg Tablet.dr, 40 MG PO DAILY Prescribed by: JOMAR VELOZ on 11/04/21 09 Potassium Chloride (Potassium Chloride) 20 Meq Tab.er.prt, 20 MG PO DAILY, (Reported) Entered as Reported by: JONI SYED on 11/03/21 1030 Warfarin Sodium (Warfarin Sodium) 2.5 Mg Tablet, 2.5 MG PO HS, (Reported) Entered as Reported by: JONI SYED on 11/03/21 1030 Exam Vital Signs Vital Signs Date Time Temp Pulse Resp B/P (MAP) Pulse Ox O2 Delivery O2 Flow Rate FiO2 11/18/21 06:51 37.0 79 20 128/78 (95) 98 Room Air Physical Exam General: Alert. No acute distress. Well nourished and appears stated age. He is wearing a LifeVest. Eye: Extraocular movements are intact. Conjunctivae are clear. There are no xanthelasma. HENT: Normocephalic. Atraumatic. Carotid pulsations 2/2 without bruits. Neck: Jugular venous pressure does not appear elevated. No thyromegaly appreciated. Respiratory: Lungs are clear to auscultation. Respirations are non-labored. Breath sounds are equal. Symmetrical chest wall expansion. Cardiovascular: Normal rate. Regular rhythm. Normal S1, metallic S2. 2/6 systolic ejection murmur. No gallop. Point of maximal impulse is not appear displaced. Good pulses equal in all extremities. No edema. Gastrointestinal: Soft. Normal bowel sounds. Skin: Skin turgor is normal. There is no pallor. Musculoskeletal: No kyphosis or scoliosis appreciated. Neurologic: Alert and oriented to person, place, time. Cranial nerves 3-12 appear grossly intact. The patient has good motor tone strength in the upper and lower extremities bilaterally. Psychiatric: Cooperative. Appropriate mood & affect. Labs Laboratory Tests Test 11/18/21 06:55 11/18/21 08:32 Range/Units White Blood Count 6.5 4.3-11.0 10^3/uL Red Blood Count 4.92 4.30-5.52 10^6/uL Hemoglobin 15.1 13.3-17.7 g/dL Hematocrit 44 40-54 % Mean Corpuscular Volume 89 80-99 fL Mean Corpuscular Hemoglobin 31 25-34 pg Mean Corpuscular Hemoglobin Concent 34 32-36 g/dL Red Cell Distribution Width 13.9 10.0-14.5 % Platelet Count 277 130-400 10^3/uL Mean Platelet Volume 10.4 9.0-12.2 fL Immature Granulocyte % (Auto) 4 % Neutrophils (%) (Auto) 59 42-75 % Lymphocytes (%) (Auto) 27 12-44 % Monocytes (%) (Auto) 8 0-12 % Eosinophils (%) (Auto) 1 0-10 % Basophils (%) (Auto) 1 0-10 % Neutrophils # (Auto) 3.8 1.8-7.8 10^3/uL Lymphocytes # (Auto) 1.8 1.0-4.0 10^3/uL Monocytes # (Auto) 0.5 0.0-1.0 10^3/uL Eosinophils # (Auto) 0.1 0.0-0.3 10^3/uL Basophils # (Auto) 0.1 0.0-0.1 10^3/uL Immature Granulocyte # (Auto) 0.3 H 0.0-0.1 10^3/uL Prothrombin Time 19.6 H 12.2-14.7 SEC INR Comment 1.6 H 0.8-1.4 Activated Partial Thromboplast Time 35 24-35 SEC Sodium Level 139 135-145 MMOL/L Potassium Level 3.9 3.6-5.0 MMOL/L Chloride Level 104 98-107 MMOL/L Carbon Dioxide Level 25 21-32 MMOL/L Anion Gap 10 5-14 MMOL/L Blood Urea Nitrogen 27 H 7-18 MG/DL Creatinine 1.33 H 0.60-1.30 MG/DL Estimat Glomerular Filtration Rate 62 BUN/Creatinine Ratio 20 Glucose Level 163 H 70-105 MG/DL Calcium Level 9.1 8.5-10.1 MG/DL Corrected Calcium 9.3 8.5-10.1 MG/DL Magnesium Level 1.5 L 1.6-2.4 MG/DL Total Bilirubin 0.6 0.1-1.0 MG/DL Aspartate Amino Transf (AST/SGOT) 25 5-34 U/L Alanine Aminotransferase (ALT/SGPT) 33 0-55 U/L Alkaline Phosphatase 88 40-136 U/L Myoglobin 57.1 10.0-92.0 NG/ML Troponin I 0.355 *H 0.347 *H <0.028 NG/ML Total Protein 6.6 6.4-8.2 GM/DL Albumin 3.7 3.2-4.5 GM/DL Radiology Preliminary review of bedside echocardiogram shows evidence of the recent anterior myocardial infarction but overall ejection fraction may be slightly improved with an ejection fraction of approximately 40%. There was a trivial pericardial effusion. Full report to follow. ECG Impression ECG Comment Sinus rhythm with intermittent ventricular bigeminy with probable recent anterolateral myocardial infarction. However, anterolateral T wave inversion is more significant than the most recent previous electrocardiogram that was done on 11/03/2021. Diagnosis/Problems Diagnosis/Problems (1) Coronary artery disease with unstable angina pectoris Assessment & Plan: He had a recent myocardial infarction approximately 2 weeks ago. Now he has some vague right-sided chest pain which is not like the discomfort he had during the myocardial infarction. His troponin level was elevated but trending downwards here in the emergency room. He has been compliant with all of his medication. He does have some anterolateral EKG changes compared to the previous electrocardiogram but I suspect these are just evolving changes of the acute myocardial infarction. He could be having some microvascular dysfunction due to the recent myocardial infarction that may have caused chest pain or perhaps he was just having musculoskeletal chest discomfort. Nonetheless, his chest discomfort has now resolved. From a cardiac standpoint, he can be discharged to home from the emergency room. I will increase his dose of isosorbide mononitrate to 60 mg daily and I sent a new prescription to his pharmacy. He should continue on aspirin, clopidogrel, and beta-unique. He is not on statin medication due to previous intolerance. I told him if he has recurrent chest discomfort that lasts more than 30-60 minutes, he needs to return to the emergency room. (2) History of anterior wall myocardial infarction Assessment & Plan: As above. (3) Cardiomyopathy Assessment & Plan: His ejection fraction following the myocardial infarction 2 weeks ago was 30-35%. He believes he had an echocardiogram earlier this year that showed a normal ejection fraction and he has no previous history of left ventricular systolic dysfunction. He is wearing a LifeVest. He is on metoprolol succinate and losartan. His ejection fraction in the emergency room this morning actually appears to be showing some degree of improvement. He is not having any symptoms of heart failure at this time. (4) Primary hypertension Assessment & Plan: Continue metoprolol and losartan. He needs to watch his blood pressure closely so we can avoid causing iatrogenic hypotension. (5) Mixed hyperlipidemia Assessment & Plan: Continue niacin. He may be a good candidate for ezetimibe. He is intolerant of statin medications and Repatha. 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 (6) Acute kidney injury superimposed on chronic kidney disease Assessment & Plan: He had a slight rise in his creatinine compared to the most recent level that was obtained prior to discharge 2 weeks ago. However, today's creatinine is similar to his creatinine level at the time of his myocardial infarction. He should continue on losartan. (7) Type 1 diabetes mellitus with complication Assessment & Plan: He has an insulin pump in place. He was previously placed on Jardiance due to his left ventricular dysfunction but he has not been taking this. I told him to hold off on taking the Jardiance. (8) History of aortic valve replacement Status: Acute Assessment & Plan: His aortic valve appears to be functioning normally on the recent echocardiograms. (9) Chronic anticoagulation Status: Acute Assessment & Plan: Continue warfarin. He did make some recent adjustments due to a low INR level. He will be having a follow-up INR level on Saturday. TIGRE HARRISON JR, MD Nov 18, 2021 08:51
[2021-11-18] MEDS ORDERED: ISOS30TA82 PO (09:13)
[2021-11-18 09:32] VITALS: BP 118/72
== END 2021-11-18 09:32 | disposition home or self-care (01) ==
LOC: EDUNIT# 06:26 → ER 06:29
DX: I25.10 Atherosclerotic heart disease of native coronary artery without angina pectoris (principal); R94.31 Abnormal electrocardiogram [ECG] [EKG]; R77.8 Other specified abnormalities of plasma proteins; E11.9 Type 2 diabetes mellitus without complications; Z95.4 Presence of other heart-valve replacement; Z79.4 Long term (current) use of insulin; Z86.718 Personal history of other venous thrombosis and embolism; Z79.01 Long term (current) use of anticoagulants; Z79.82 Long term (current) use of aspirin
CPT/HCPCS: 36415; 71045; 80053; 83735; 83874; 84484; 85025; 85610; 85730; 93005; 93041; 93308

== ENCOUNTER → 2021-12-06 | Outpatient (CLI) | payer OTHER | LOC: CARD 09:12 | PROVIDERS: ATTEND Physician Assistant | DX: I49.9 Cardiac arrhythmia, unspecified (principal); I44.4 Left anterior fascicular block; I21.9 Acute myocardial infarction, unspecified | CPT/HCPCS: 93225; 93226 ==

== ENCOUNTER → 2022-03-02 | Outpatient (RCR) | payer OTHER | END | disposition home or self-care (01) | LOC: CR 02-19 07:56 | PROVIDERS: ATTEND Internal Medicine Cardiovascular Disease | DX: Z29.8 Encounter for other specified prophylactic measures (principal); I21.9 Acute myocardial infarction, unspecified | CPT/HCPCS: 93798 ==

== ENCOUNTER → 2022-04-02 | Outpatient (RCR) | payer OTHER | END | disposition home or self-care (01) | LOC: CR 03-05 06:32 | PROVIDERS: ATTEND Internal Medicine Cardiovascular Disease | DX: Z29.8 Encounter for other specified prophylactic measures (principal); I21.9 Acute myocardial infarction, unspecified | CPT/HCPCS: 93798 ==

== ENCOUNTER → 2022-05-02 | Outpatient (RCR) | payer OTHER | END | disposition home or self-care (01) | LOC: CR 04-04 06:21 | PROVIDERS: ATTEND Internal Medicine Cardiovascular Disease | DX: Z29.8 Encounter for other specified prophylactic measures (principal); I21.9 Acute myocardial infarction, unspecified | CPT/HCPCS: 93798 ==

== ENCOUNTER 2022-05-23 09:56 | Outpatient (RCR) | payer OTHER | END 2022-06-02 | disposition home or self-care (01) | LOC: CR 09:56 | PROVIDERS: ATTEND Internal Medicine Cardiovascular Disease | DX: Z29.8 Encounter for other specified prophylactic measures (principal); I21.9 Acute myocardial infarction, unspecified | CPT/HCPCS: 93798 ==